=== PATIENT | female | born 1965 | race Caucasian/White ===

== ENCOUNTER → 2022-06-05 | Outpatient (CLI) | payer BC ==
--- NOTE | 2022-06-05 10:18 | XR ---
EXAMINATION TYPE: XR finger LT DATE OF EXAM: 06/05/2022 COMPARISON: NONE HISTORY: Palpable abnormality, pain TECHNIQUE: Three views are submitted. FINDINGS: The osseous structures are intact. The joint spaces are preserved and there is no acute fracture or dislocation. IMPRESSION: 1. No definite acute fracture or dislocation if symptoms persist, follow-up study in 7 to 10 days wo uld be suggested
== END | disposition home or self-care (01) ==
LOC: RADXRYALE 10:01
PROVIDERS: ATTEND Internal Medicine
DX: M79.645 Pain in left finger(s) (principal)